=== PATIENT | female | born 1960 | race Caucasian/White ===

== ENCOUNTER 2019-02-19 06:56 | Day surgery (SDC) | payer BC ==
[2019-02-19] MEDS ORDERED: PROPOFOL 40 ML (09:13)
[2019-02-19] MEDS ORDERED: LIDOCAINE 100 MG SYRINGE (09:13)
[2019-02-19] MEDS ORDERED: PROPOFOL 200 MG INJ (09:13)
[2019-02-19] MEDS ORDERED: FENTAnyl 50 MCG/ML VIAL (09:13)
== END 2019-02-19 10:50 | disposition home or self-care (01) ==
LOC: GIL 06:56
DX: K29.50 Unspecified chronic gastritis without bleeding (principal)
CPT/HCPCS: 43239; 88305; 88312

== ENCOUNTER 2019-04-05 13:07 | Day surgery (SDC) | payer BC ==
[2019-04-05] MEDS ORDERED: PROPOFOL 40 ML (16:34)
== END 2019-04-05 18:04 | disposition home or self-care (01) ==
LOC: GIL 13:07
DX: Z12.11 Encounter for screening for malignant neoplasm of colon (principal); D12.4 Benign neoplasm of descending colon; D12.3 Benign neoplasm of transverse colon; K64.8 Other hemorrhoids; K62.1 Rectal polyp; K57.30 Diverticulosis of large intestine without perforation or abscess without bleeding; I10 Essential (primary) hypertension
CPT/HCPCS: 45385; 88305